=== PATIENT | female | born 1995 | race Caucasian/White ===

== ENCOUNTER 2024-05-31 07:42 | Inpatient (IN) ==
[2024-05-31] MEDS ORDERED: LIDOCAINE 1% LOCAL 20 ML VIAL INFIL PRN (08:14)
[2024-05-31] MEDS ORDERED: CALCIUM CARBONATE 500 MG CHEWABLE TAB PO PRN (08:14)
[2024-05-31] MEDS ORDERED: ACETAMINOPHEN 325 MG TAB PO PRN (08:14)
[2024-05-31] MEDS: OXYTOCIN 30 UNITS/NSS 30 UNITS/500 ML BAG IV PRN (09:25)
[2024-05-31] MEDS: LACTATED RINGER'S 1,000 ML IV PRN (09:25)
--- NOTE | 2024-05-31 09:34 | History & Physical Report ---
Date of Service May 31, 2024 Assessment & Plan (1) Encounter for induction of labor: (2) Post-dates : (3) Pyelectasis of fetus on ultrasound: Plan admit, iv, labs. fhts categ 1. kim placed and will start pitocin. ?s answered. Admission and Anticipated Discharge Date Admission Date: May 31, 2024 History of Present Illness Chief Complaint: induction of labor. Primary Care Provider: NO PCP 29yo at 41+wks lino presents to LD for planned induction of labor. Did not opt to do kim last pm and here today for that and induction. +FM. No rom. No vb. No ctx. PNC c/b 1. right pyelectasis, mild 2. offer MMR pp. PNL rh pos, rubella equiv, gbs neg OBH: g1 GYNH: nl paps no stds Allergies Allergy/AdvReac Type Severity Reaction Status Date / Time No Known Allergies Allergy Verified 05/30/24 14:32 Home Medications Medication Instructions Recorded Confirmed Type Lactobacillus combo no.23 [Rafael PO 11/16/23 05/30/24 History Probiotic] magnesium PO 11/16/23 05/30/24 History 21-iron fu-folic acid PO 11/16/23 05/30/24 History [ Complete] Patient History Medical History (Updated 05/31/24 @ 09:39 by Sara Farah MD, FACOG) Ovarian cyst Varicella vaccination ADHD Surgical History S/P wisdom tooth extraction S/P adenoidectomy Family History Father Hypertension Grandmother (Paternal) No problems noted. Grandmother (Maternal) Pancreatic cancer Denies family history of Ovarian cancer Breast cancer Colorectal cancer Social History (Updated 05/31/24 @ 08:00 by Danielle Ugarte, FARHAN) Smoking Status: Never smoker Do You Dip or Chew Tobacco: No; Hx Alcohol Use: No Hx Substance Use: No Preferred Language: Maltese Communication Ability: Effective Visual Impairment: No Limitations Hearing Ability: Normal Bat Carrier Required: No Beliefs That Will Affect Care: None marital status: marital status details: Hernando Michelle [phone] Current Living Situation: Spouse Current Living Situation Comment: lives with spouse, parents, dog current occupational status: employed current occupation: [employer] technician [employer] Other Information That Helps Us Care for You: No Feels Safe at Home: Yes Diet: regular Assistive Devices: None Review of Systems as per Subjective / HPI Physical Exam Constitutional: WD/WN, vitals as above Respiratory: normal respiratory effort, lungs clear to auscultation Cardiovascular: Rate/Rhythm: regular rate and regular rhythm Gastrointestinal (Abdomen): soft gravid nt efw 7-8# Musculoskeletal: no edema nontender calves Neurologic: grossly normal Psychiatric: A+Ox3, euthymic affect Genitourinary: Manual OB Exam: + cervical dilation 1 cm, + cervical effacement 50% and + station high OB Exam Monitor Tracing: + external FHT monitor used, + external uterine monitor used, + category I and + normal FHT variability PROCEDURE: sse cx visualized, grasped on ant lip with ring forcep, kim through os and balloon inflated with 40cc sterile water. Spec removed, kim taped to leg. pt naldo well. Results & Data Vital Signs (Past 12 Hours) Vital Signs Temp Pulse Resp BP 05/31/24 09:27 68 128/91 05/31/24 08:01 98.1 F 20 05/31/24 07:57 87 129/79 Coding Level of Care Code None Diagnoses Encounter for induction of labor Z34.90 Post-dates O48.0 Pyelectasis of fetus on ultrasound O35.EXX0 CPT Codes Misx Procedure Codes - 63392 Placement of cervical dilator: 85621 Placement of cervical dilator ([id number])
[2024-05-31 09:35] LABS: Hematocrit (blood only) 33.1 % (37.0-47.0); Hemoglobin 11.3 g/dl (12.0-16.0); Mean Corpuscular Hemoglobin 32.1 pg (25.0-34.0); Mean Corpuscular Hgb Conc 34.1 g/dL (32.0-36.0); Mean Platelet Volume 11.3 fL (9.4-12.4); Platelet Count 175 K/uL (130-400); RDW Coefficient of Variation 12.9 % (11.5-14.5); Red Blood Count 3.52 M/uL (4.20-5.40); White Blood Count 8.64 K/ul (4.8-10.8)
[2024-05-31] MEDS ORDERED: SODIUM CHLORIDE 0.9% PF INJ 10 ML VIAL EPI PRN (14:38)
[2024-05-31] MEDS ORDERED: LIDOCAINE 2% MPF LOCAL 5 ML VIAL EPI PRN (14:38)
[2024-05-31] MEDS ORDERED: diphenhydrAMINE 50 MG/ML VIAL IV PRN (14:38)
[2024-05-31] MEDS ORDERED: NALBUPHINE HCL INJ 10 MG/ML AMP IV PRN (14:38)
[2024-05-31] MEDS ORDERED: BUPIVACAINE 0.25% PF 30 ML VIAL EPI PRN (14:38)
[2024-05-31] MEDS ORDERED: fentaNYL citrate PF 100 MCG/2 ML VIAL EPI PRN (14:38)
[2024-05-31] MEDS ORDERED: ePHEDrine sulfate 50 MG/ML AMP IV PRN (14:38)
[2024-05-31] MEDS ORDERED: NALOXONE HCL 0.4 MG/1 ML VIAL/CARP IV PRN (14:38)
[2024-05-31] MEDS ORDERED: ROPIVACAINE 0.5% PF 5 MG/ML 20 ML VIAL EPI PRN (14:38)
[2024-05-31] MEDS ORDERED: NALOXONE HCL 1 MG in SODIUM CHLORIDE 0.9% 1,000 ML IV PRN (14:38)
--- NOTE | 2024-05-31 14:38 | Anesthesiology Consultation ---
Date of Service May 31, 2024 Assessment & Plan Chart Review Chart Review: Acceptable Risk for Labor Epidural Consults Requested none History Height/Weight Height: 5 ft 6 in Weight: 78.925 kg Allergies Allergy/AdvReac Type Severity Reaction Status Date / Time No Known Allergies Allergy Verified 05/30/24 14:32 Medications Home Medications Medication Instructions Recorded Confirmed Last Taken Lactobacillus combo no.23 [Rafael PO 11/16/23 05/30/24 05/30/24 Probiotic] magnesium PO 11/16/23 05/30/24 05/30/24 21-iron fu-folic acid PO 11/16/23 05/30/24 05/30/24 [ Complete] Active Medications Generic Name Dose Route Start Last Admin Trade Name Freq PRN Reason Stop Dose Admin Lactated Ringer's 1,000 mls @ 125 mls/hr 05/31/24 08:14 05/31/24 09:25 Lr IV 06/01/24 08:13 125 mls/hr .Q8H PRN Administration L&D Protocol Protocol Oxytocin 30 units in 500 mls @ 4 mls/hr 05/31/24 08:16 05/31/24 10:00 Pitocin 30 Units/Nss IV 06/02/24 08:15 0.24 units/hr .Q24H PRN 4 mls/hr Labor Induction/Augmentation Titration Protocol 0.24 UNITS/HR Past Medical History Medical History (Updated 05/31/24 @ 09:39 by Sara Farah MD, FACOG) Ovarian cyst Varicella vaccination ADHD Past Family History Family History Father Hypertension Grandmother (Paternal) No problems noted. Grandmother (Maternal) Pancreatic cancer Denies family history of Ovarian cancer Breast cancer Colorectal cancer Past Surgical History Surgical History S/P wisdom tooth extraction S/P adenoidectomy Social History Smoking Status: Never smoker Do You Dip or Chew Tobacco: No Hx Alcohol Use: No Hx Substance Use: No Physical Exam Vital Signs Last Vital Signs Temp 36.8 C 05/31/24 11:33 Pulse 73 05/31/24 14:13 Resp 20 05/31/24 11:33 BP 125/73 05/31/24 14:13 Testing Laboratory Results 05/31/24 09:15
[2024-05-31] MEDS: LIDOCAINE 2%/EPINEPHRINE 1:200,000 20 ML PF ONE (15:06)
[2024-05-31] MEDS: fentANYL 2 MCG/ML BUPIVacaine 0.125%-NSS 100ML BAG ONE (15:11)
[2024-05-31] MEDS: BUPIVACAINE 0.25% PF 30 ML VIAL ONE (16:22)
[2024-05-31] MEDS: ePHEDrine sulfate 50 MG/ML AMP ONE (16:22)
[2024-05-31] MEDS: SODIUM CHLORIDE 0.9% PF INJ 10 ML VIAL ONE (16:22)
[2024-05-31] MEDS: fentaNYL citrate PF 100 MCG/2 ML VIAL ONE (16:22)
[2024-05-31] MEDS: LIDOCAINE 2%/EPINEPHRINE 1:200,000 20 ML PF EPI STA (16:23)
[2024-05-31] MEDS: BUPIVACAINE 0.25% PF 30 ML VIAL EPI STA (16:23)
[2024-05-31] MEDS: fentaNYL citrate PF 100 MCG/2 ML VIAL EPI STA (16:23)
[2024-05-31] MEDS: SODIUM CHLORIDE 0.9% PF INJ 10 ML VIAL EPI STA (16:24)
--- NOTE | 2024-05-31 17:23 | Labor Progress Brief Note ---
Date of Service May 31, 2024 Subjective comfortable with epidural Assessment & Plan (1) Encounter for induction of labor: (2) Post-dates : Plan need to cont to increase pit to improve labor pattern. fhts categ 1. Admission and Anticipated Discharge Date Admission Date: May 31, 2024 Physical Exam Constitutional: WD/WN, vitals as above Genitourinary: Manual OB Exam: + cervical dilation 4 cm, + cervical effacement 50% and + station -2 OB Exam Monitor Tracing: + external FHT monitor used, + external uterine monitor used (q3 pit at 10), + category I and + normal FHT variability Results & Data Vital Signs (Past 12 Hours) Vital Signs Temp Pulse Resp BP Pulse Ox 05/31/24 17:18 70 109/62 99 05/31/24 17:13 79 99 05/31/24 17:08 81 98 05/31/24 17:04 94 H 154/77 H 05/31/24 17:03 99 H 98 05/31/24 16:58 79 99 05/31/24 16:53 85 98 05/31/24 16:48 84 119/78 98 05/31/24 16:43 84 98 05/31/24 16:38 91 H 98 05/31/24 16:33 99 05/31/24 16:33 86 05/31/24 16:33 84 122/80 05/31/24 16:28 83 97 05/31/24 16:23 90 98 05/31/24 16:18 99 05/31/24 16:18 86 05/31/24 16:18 81 20 127/72 05/31/24 16:13 82 99 05/31/24 16:08 76 99 05/31/24 16:03 98 05/31/24 16:03 86 05/31/24 16:03 82 20 109/74 05/31/24 15:58 80 98 05/31/24 15:53 84 98 05/31/24 15:48 77 99 05/31/24 15:43 76 98 05/31/24 15:38 74 97 05/31/24 15:34 72 20 125/74 05/31/24 15:33 75 98 05/31/24 15:28 77 130/84 97 05/31/24 15:25 97.9 F 71 18 129/80 05/31/24 15:23 80 97 05/31/24 15:18 72 99 05/31/24 15:16 18 115/65 05/31/24 15:14 74 18 119/66 05/31/24 15:13 98 05/31/24 15:13 77 05/31/24 15:13 71 18 115/63 05/31/24 15:11 76 127/62 05/31/24 15:09 73 18 136/65 05/31/24 15:08 74 99 05/31/24 15:07 91 H 18 134/87 05/31/24 15:04 85 18 134/78 05/31/24 15:03 81 98 05/31/24 15:02 82 20 135/78 05/31/24 14:58 82 100 05/31/24 14:55 82 92 05/31/24 14:53 103 H 100 05/31/24 14:48 79 100 05/31/24 14:13 73 18 125/73 05/31/24 13:28 80 18 118/74 05/31/24 12:32 82 18 117/72 05/31/24 11:33 98.2 F 78 20 123/78 05/31/24 10:35 72 129/83 05/31/24 09:27 68 18 128/91 05/31/24 08:01 98.1 F 20 05/31/24 07:57 87 129/79 Coding Level of Care Code None Diagnoses Encounter for induction of labor Z34.90 Post-dates O48.0
[2024-05-31] MEDS: fentANYL 2 MCG/ML BUPIVacaine 0.125%-NSS 100ML BAG EPI PRN (21:40)
[2024-05-31] MEDS: ONDANSETRON INJ 2 MG/ML 2 ML VIAL IV PRN (22:07)
--- NOTE | 2024-05-31 23:34 | Labor Progress Brief Note ---
Date of Service May 31, 2024 Subjective pt comfortable. Assessment & Plan (1) Encounter for induction of labor: (2) Post-dates : Plan will cont with pit and reeval for cx change. fhts categ 1. Admission and Anticipated Discharge Date Admission Date: May 31, 2024 Physical Exam Constitutional: WD/WN, vitals as above Genitourinary: Manual OB Exam: + cervical dilation 5 cm, + cervical effacement 80% and + station -2 OB Exam Monitor Tracing: + external FHT monitor used, + external uterine monitor used (q2), + category I and + normal FHT variability Results & Data Vital Signs (Past 12 Hours) Vital Signs Temp Pulse Resp BP Pulse Ox 05/31/24 23:28 101 H 96 05/31/24 23:23 85 94 05/31/24 23:19 88 94 05/31/24 23:18 98 05/31/24 23:18 106 H 05/31/24 23:18 102 H 110/71 05/31/24 23:13 105 H 97 05/31/24 23:08 94 H 95 05/31/24 23:03 88 95 05/31/24 23:02 103 H 113/70 05/31/24 23:00 16 05/31/24 23:00 98.4 F 16 05/31/24 22:58 95 H 96 05/31/24 22:53 101 H 96 05/31/24 22:48 94 H 96 05/31/24 22:47 109 H 113/72 05/31/24 22:43 82 96 05/31/24 22:38 87 97 05/31/24 22:33 82 126/72 97 05/31/24 22:28 100 H 97 05/31/24 22:23 96 H 96 05/31/24 22:18 97 05/31/24 22:18 92 H 05/31/24 22:18 88 121/78 05/31/24 22:13 79 98 05/31/24 22:08 111 H 98 05/31/24 22:03 100 H 130/82 98 05/31/24 21:58 86 98 05/31/24 21:53 88 95 05/31/24 21:48 103 H 132/89 99 05/31/24 21:43 97 H 97 05/31/24 21:38 93 H 96 05/31/24 21:34 95 H 130/86 05/31/24 21:33 96 H 97 05/31/24 21:28 89 97 05/31/24 21:23 96 H 97 05/31/24 21:18 103 H 133/83 98 05/31/24 21:13 102 H 96 05/31/24 21:08 96 H 98 05/31/24 21:04 18 05/31/24 21:04 98.1 F 18 05/31/24 21:03 87 97 05/31/24 21:02 95 H 104/60 05/31/24 20:58 88 97 05/31/24 20:53 82 97 05/31/24 20:49 89 118/68 05/31/24 20:48 89 97 05/31/24 20:43 85 97 05/31/24 20:38 83 98 05/31/24 20:33 97 05/31/24 20:33 84 05/31/24 20:33 83 106/60 05/31/24 20:28 83 97 05/31/24 20:23 86 98 05/31/24 20:19 83 116/72 05/31/24 20:18 81 97 05/31/24 20:13 80 97 05/31/24 20:08 89 97 05/31/24 20:03 98 05/31/24 20:03 85 05/31/24 20:03 75 120/69 05/31/24 19:58 80 97 05/31/24 19:53 95 H 97 05/31/24 19:49 94 H 136/91 05/31/24 19:48 92 H 98 05/31/24 19:43 96 H 97 05/31/24 19:38 93 H 97 05/31/24 19:34 94 H 112/76 05/31/24 19:33 89 96 05/31/24 19:28 89 97 05/31/24 19:23 91 H 97 05/31/24 19:18 97 05/31/24 19:18 91 H 05/31/24 19:18 115 H 140/89 05/31/24 19:13 93 H 98 05/31/24 19:08 88 97 05/31/24 19:03 85 97 05/31/24 19:02 83 112/68 05/31/24 18:58 86 97 05/31/24 18:57 106 H 94 05/31/24 18:53 88 96 05/31/24 18:49 83 20 101/60 05/31/24 18:48 84 96 05/31/24 18:43 92 H 97 05/31/24 18:38 86 97 05/31/24 18:34 83 115/72 05/31/24 18:33 81 97 05/31/24 18:28 92 H 98 05/31/24 18:23 85 97 05/31/24 18:18 82 98 05/31/24 18:17 83 120/80 05/31/24 18:13 77 96 05/31/24 18:08 83 99 05/31/24 18:04 85 18 110/64 05/31/24 18:03 85 99 05/31/24 18:00 18 05/31/24 18:00 18 05/31/24 17:58 88 98 05/31/24 17:53 78 98 05/31/24 17:48 77 98 05/31/24 17:47 89 18 116/72 05/31/24 17:43 77 97 05/31/24 17:38 83 99 05/31/24 17:33 97 05/31/24 17:33 72 05/31/24 17:33 129 H 127/58 L 05/31/24 17:28 70 98 05/31/24 17:23 86 98 05/31/24 17:18 70 109/62 99 05/31/24 17:13 79 99 05/31/24 17:08 81 98 05/31/24 17:04 94 H 154/77 H 05/31/24 17:03 99 H 98 05/31/24 17:00 20 05/31/24 17:00 98.2 F 20 05/31/24 17:00 18 05/31/24 17:00 18 05/31/24 16:58 79 99 05/31/24 16:53 85 98 05/31/24 16:48 84 119/78 98 05/31/24 16:43 84 98 05/31/24 16:38 91 H 98 05/31/24 16:33 99 05/31/24 16:33 86 05/31/24 16:33 84 122/80 05/31/24 16:28 83 97 05/31/24 16:23 90 98 05/31/24 16:18 99 05/31/24 16:18 86 05/31/24 16:18 81 20 127/72 05/31/24 16:13 82 99 05/31/24 16:08 76 99 05/31/24 16:03 98 05/31/24 16:03 86 05/31/24 16:03 82 20 109/74 05/31/24 15:58 80 98 05/31/24 15:53 84 98 05/31/24 15:48 77 99 05/31/24 15:43 76 98 05/31/24 15:38 74 97 05/31/24 15:34 72 20 125/74 05/31/24 15:33 75 98 05/31/24 15:28 77 130/84 97 05/31/24 15:25 97.9 F 71 18 129/80 05/31/24 15:23 80 97 05/31/24 15:18 72 99 05/31/24 15:16 18 115/65 05/31/24 15:14 74 18 119/66 05/31/24 15:13 98 05/31/24 15:13 77 05/31/24 15:13 71 18 115/63 05/31/24 15:11 76 127/62 05/31/24 15:09 73 18 136/65 05/31/24 15:08 74 99 05/31/24 15:07 91 H 18 134/87 05/31/24 15:04 85 18 134/78 05/31/24 15:03 81 98 05/31/24 15:02 82 20 135/78 05/31/24 14:58 82 100 05/31/24 14:55 82 92 05/31/24 14:53 103 H 100 05/31/24 14:48 79 100 05/31/24 14:13 73 18 125/73 05/31/24 13:28 80 18 118/74 05/31/24 12:32 82 18 117/72 05/31/24 11:33 98.2 F 78 20 123/78 Coding Level of Care Code None Diagnoses Encounter for induction of labor Z34.90 Post-dates O48.0
[2024-06-01] MEDS: miSOPROStoL 200 MCG TAB PR ONE (04:17)
[2024-06-01] MEDS: METHYLERGONOVINE MALEATE 0.2 MG/ML AMP IM ONE (04:24)
--- NOTE | 2024-06-01 04:29 | Delivery Summary ---
Vaginal Delivery Summary Date of Service June 01, 2024 Vaginal Delivery Summary and 2nd Degree LAC The patient dilated to complete and pushed to deliver a viable male Apgars 8 and 9 via over 2nd degree perineal laceration. Mouth and nose bulb suctioned at perineum. Loose nuchal x 1 reduced. Shoulders and body delivered with ease. was vigorous and crying at . Cord clamped at 30 seconds of life and infant to maternal abdomen where the cord was then doubly clamped and cut. Placenta delivered spontaneously and intact, three-vessel cord. Hemostasis not achieved with dilute pitocin and uterine massage and drainage of the bladder for approximately 150 cc under sterile conditions. Rectal cytotec 1000mc given and tone was improving and after BP checked, IM methergine also given. Laceration repaired in layers with 3-0 vicryl in routine fashion. Cervix and sulci intact. QBL 1279 cc. Mother and baby stable in recovery. [facility] [place] Charge Delivery Type Details: and 2nd Degree LAC
[2024-06-01] MEDS: OXYTOCIN 30 UNITS/NSS 30 UNITS/500 ML BAG IV PRN (04:31)
[2024-06-01] MEDS ORDERED: oxyCODONE/ACETAMINOPHEN 5mg/325mg TAB PO PRN (04:46)
[2024-06-01] MEDS ORDERED: OXYTOCIN 30 UNITS/NSS 30 UNITS/500 ML BAG IV PRN (04:46)
[2024-06-01] MEDS ORDERED: HYDROCORTISONE ACETATE 25 MG SUPP PR PRN (04:46)
--- NOTE | 2024-06-01 07:52 | Anesthesia Procedure Note ---
Date of Service June 01, 2024 Anesthesia Post Epidural Note Vital Signs Vital Signs: Temp Pulse Resp BP Pulse Ox 37.2 C 91 H 18 123/70 91 06/01/24 02:10 06/01/24 07:25 06/01/24 06:25 06/01/24 07:25 06/01/24 04:43 Pain Intensity Bilateral Abdomen: Pain Intensity: 0 Notes Mental Status: alert / awake / arousable Nausea / Vomiting: adequately controlled Pain: adequately controlled Airway Patency, RR, SpO2: stable & adequate BP & HR: stable & adequate Hydration State: stable & adequate Neuraxial Anesthesia: was administered and sensory block is resolving Anesthetic Complications: no major complications apparent and Pt Satisfied with anesthetic care Epidural: Removed without complications and With tip intact
[2024-06-01] MEDS ORDERED: SODIUM CHLORIDE 0.9% 100 ML IV PRN (07:56)
[2024-06-01] MEDS: DOCUSATE SODIUM 100 MG CAP PO SCH (08:27)
[2024-06-01] MEDS: PRENATAL VITAMIN 1 TAB PO SCH (08:27)
[2024-06-01] MEDS: BENZOCAINE 20% SPRY 85 APPLN/85 GM CAN EXT PRN (08:27)
[2024-06-01] MEDS: IBUPROFEN 600 MG TAB PO PRN (08:37)
[2024-06-01] MEDS: MEASLES, MUMPS & RUBELLA VIRUS VACCINE (MMR) 0.5ML VIAL SQ ONE (09:51)
[2024-06-01] MEDS: DIPHTHER/TETAN/PERTUS Vaccine (Tdap, Adol/Adult) 0.5mL IM ONE (09:52)
[2024-06-01 12:30] LABS: Hematocrit (blood only) 28.8 % (37.0-47.0); Hemoglobin 10.1 g/dl (12.0-16.0)
[2024-06-01] MEDS: ACETAMINOPHEN 325 MG TAB PO PRN (20:54)
[2024-06-02 02:48] VITALS: RESP 16
--- NOTE | 2024-06-02 05:53 | Obstetrical Progress Note ---
Date of Service June 02, 2024 Assessment & Plan (1) Post-dates : (2) Encounter for care and examination after delivery: Plan Pt is 29 yo post- day 1 s/p at 40+ weeks. complicated by rubella equivocal. Doing well and requesting DC today pending baby's discharge. - Encourage ambulation and breast feeding - Pain control with tylenol and ibuprofen - DC today Admission and Anticipated Discharge Date Admission Date: May 31, 2024 Supervising Physician Co-Signing Physician Notes Resident Physician Supervision Note: I was present with Dr. Ray during the history and exam. I discussed the case with the resident and agree with the findings and plan as documented in the note. Any exceptions or clarifications are listed here: Doing well today although notes tired. Hgb dropped to 8.4 as expected with pph. However, patient notes no dizziness or lightheadedness with standing or moving. Plan d/c today. Instructions given. f/u in the office in 6 weeks. Documented By: Fatoumata Wild MD, FACOG Subjective Pt is 29 yo post- day 1 s/p at 40+ weeks. complicated by rubella equivocal. Ambulation:In and out of room Voiding:voiding normally Passing gas: yes BM: no Diet tolerance:regular diet Lochia:bloody, no clots Feeding type: breast Current pain level: 3 /10 improved with curren meds Resting comfortably this morning in NAD. Denies [place], CP, SOB, N/V/D, LE pain/swelling. Review of Systems Review of Systems: As per HPI Physical Exam Constitutional: WD/WN, vitals as above Respiratory: normal respiratory effort, lungs clear to auscultation Cardiovascular: RRR, no murmur, no edema Gastrointestinal (Abdomen): normal bowel sounds, soft, nontender, no hepatosplenomegaly Uterine fundus firm and at 1-2 cm below level of umbilicus Neurologic: PERRL, EOMI, accommodation nl, no face palsy, no dysarthria Moving all 4 extremities on command Psychiatric: A+Ox3, euthymic affect Results & Data Vital Signs (Past 12 Hours) Vital Signs Temp Pulse Resp BP O2 Del Method 06/02/24 00:45 36.4 C L 65 16 110/75 Room Air 06/01/24 20:45 36.9 C 77 16 118/78 Room Air Resident Activity Tracking Resident Involvement: Resident Care Provided Care Provided: Adult Hospital Medicine
[2024-06-02 06:03] VITALS: TEMP 97.9
[2024-06-02 06:37] LABS: Hematocrit (blood only) 24.6 % (37.0-47.0); Hemoglobin 8.4 g/dl (12.0-16.0)
[2024-06-02 08:09] VITALS: BP 120/77; PULSE 73; O2SAT 97
[2024-06-02] MEDS ORDERED: bisacodyL 5 MG TABEC PO SCH (20:00)
== END 2024-06-02 15:24 | disposition home or self-care (01) | DRG 807 ==
LOC: 4S1 07:42 → 4E2 06-01 08:08